=== PATIENT | male | born 1940 | race Caucasian/White ===

== ENCOUNTER → 2021-02-11 | Outpatient (CLI) | payer OTHER ==
[2021-02-11 10:32] LABS: URINE BILIRUBIN NEGATIVE (Negative); URINE BLOOD NEGATIVE (Negative); URINE CLARITY CLEAR; URINE COLOR YELLOW; URINE GLUCOSE-RANDOM* NEGATIVE (Negative); URINE KETONES NEGATIVE (Negative); URINE LEUKOCYTES-REFLEX TRACE (Negative); URINE NITRITE-REFLEX NEGATIVE (Negative); URINE PROTEIN (DIPSTICK) NEGATIVE (Negative); URINE SPECIFIC GRAVITY 1.015 (1.005-1.035); URINE UROBILINOGEN 0.2 E.U./dl (0.2-1.0)
[2021-02-11 11:08] LABS: ALBUMIN 4.1 g/dL (3.4-5.0); CALCIUM 9.6 mg/dL (8.5-10.1); CREATININE 1.5 mg/dL (0.7-1.3); POTASSIUM 4.8 mmol/L (3.5-5.1); TOTAL BILIRUBIN 0.6 mg/dL (0.2-1.0); TOTAL PROTEIN 7.1 g/dL (6.4-8.2)
== END ==
LOC: LAB 09:41 → ULTRA 10:05 → EDSTATUS 10:12
PROVIDERS: ATTEND Orthopaedic Surgery
DX: I73.89 Other specified peripheral vascular diseases (principal); I99.9 Unspecified disorder of circulatory system; Z90.5 Acquired absence of kidney